=== PATIENT | male | born 1985 | race Caucasian/White ===

== ENCOUNTER 2019-06-12 20:27 | Emergency (ER) | payer SELFPAY ==
[~2019-06-12 20:27] MED LIST: ISOVUE-370 76%-LOCM 1 ML ONE
[2019-06-12 20:55] LABS: #Basophils 0.1 thou/uL (0.0-0.2); #Eosinphils 0.2 thou/uL (0.0-0.7); #Lymphocytes 2.5 thou/uL (1.20-3.40); #Monocytes 0.7 thou/uL (0.11-0.59); #Neutrophils 4.3 thou/uL (1.40-6.50); %Basophils 0.9 % (0.0-1.0); %Eosinophils 3.1 % (0.0-10.0); %Lymphocytes 32.6 % (21.0-51.0); %Monocytes 8.9 % (0.0-10.0); %Neutrophils 54.5 % (42.0-75.0); Mean Corpuscular HGB CONC 34.7 g/dL (32.0-36.0); Mean Corpuscular Hemoglobin 29.9 pg (27.0-31.0); Mean Corpuscular Volume 86.3 fL (78.0-98.0); Mean Platelet Volume 8.2 fL (7.4-10.4); Platelet Count 272 thou/uL (130-400); RBC Distribution Width 11.3 % (11.5-14.5); Red Blood Cell (RBC) Count 5.01 mill/uL (4.70-6.10); White Blood Cell (WBC) Count 7.8 thou/uL (4.8-10.8)
[2019-06-12] MEDS ORDERED: Lorazepam 2 MG/ML VIAL ONE (21:01)
[2019-06-12 21:16] LABS: ALT (SGPT) 17 U/L (8-55); AST (SGOT) 15 U/L (5-34); Albumin 4.7 g/dL (3.5-5.0); Alkaline Phosphatase 50 U/L (40-150); Anion Gap 15 mmol/L (10-20); BUN (Urea Nitrogen) 10 mg/dL (8.9-20.6); Bilirubin, Total 0.5 mg/dL (0.2-1.2); Calc. Creatinine Clearance 0 mL/min (70-130); Calcium 9.5 mg/dL (7.8-10.44); Carbon Dioxide 22 mmol/L (22-29); Chloride 109 mmol/L (98-107); Estimated GFR-MDRD Greater than 90; Globulin 2.9 g/dL (2.4-3.5); Glucose 94 mg/dL (70-105); Potassium 3.6 mmol/L (3.5-5.1); Protein, Total 7.6 g/dL (6.0-8.3); Sodium 142 mmol/L (136-145)
--- NOTE | 2019-06-12 22:00 | CT ---
CT neck soft tissues with contrast: HISTORY: 33-year-old male with dysphagia and dyspnea. FINDINGS: Bilateral palatine tonsils and adenoids are symmetrically enlarged. Mild enlargement of lingual tonsi l. Distention of the hypopharynx with air. No asymmetry of larynx. Trachea patent and clear. Lung apices clear. No pneumothorax. No abscess or lymphadenopathy. Submandibular, parotid, carotid, retrop haryngeal, parapharyngeal, perivertebral, collar worker, and posterior cervical spaces, are normal. No thyromegaly. IMPRESSION: 1. Hyperplasia of Waldeyer's ring. 2. Distention of hypopharynx with air.
[2019-06-12] MEDS ORDERED: Dexamethasone 10 MG/ML VIAL ONE (22:16)
== END 2019-06-13 00:05 | disposition home or self-care (01) ==
LOC: ERS 20:27
DX: R09.89 Other specified symptoms and signs involving the circulatory and respiratory systems (principal)
CPT/HCPCS: 70491; 80053; 85025; 93005; 96361; 96374; 96375; J1100; J1610; J2060; Q9966

== ENCOUNTER 2019-06-13 22:20 | Emergency (ER) | payer SELFPAY ==
[2019-06-13] MEDS ORDERED: diphenhydrAMINE 12.5 MG/5 ML UDCUP ONE (22:33)
[2019-06-13] MEDS ORDERED: Dexamethasone 4 mg/ml Vial ONE (22:33)
[2019-06-13] MEDS ORDERED: Lorazepam 2 MG/ML VIAL ONE (22:44)
== END 2019-06-13 23:36 | disposition home or self-care (01) ==
LOC: ERS 22:20
DX: R13.10 Dysphagia, unspecified (principal)
CPT/HCPCS: 96372; 99284; J1100; J2060; Q0163

== ENCOUNTER 2022-09-29 17:30 | Emergency (ER) | payer SELFPAY ==
[2022-09-29 17:59] LABS: #Lymphocytes 0.6 thou/uL (1.20-3.40); #Monocytes 0.6 thou/uL (0.11-0.59); #Neutrophils 15.5 thou/uL (1.40-6.50); %Basophils 0.2 % (0.0-1.0); %Eosinophils 0.2 % (0.0-10.0); %Lymphocytes 3.8 % (21.0-51.0); %Monocytes 3.7 % (0.0-10.0); %Neutrophils 92.1 % (42.0-75.0); Hemoglobin 17.4 g/dL (14.0-18.0); Mean Corpuscular HGB CONC 33.2 g/dL (32.0-36.0); Mean Corpuscular Hemoglobin 30.6 pg (27.0-31.0); Mean Platelet Volume 7.9 fL (7.4-10.4); Platelet Count 320 10x3/uL (130-400); RBC Distribution Width 11.3 % (11.5-14.5); White Blood Cell (WBC) Count 16.8 10x3/uL (4.8-10.8)
[2022-09-29 18:02] LABS: Bilirubin Negative (Negative); Blood, Urine Negative (Negative); Clarity Clear (Clear); Glucose, Urine (Dipstick) Normal (Negative); Ketone, Urine Trace mg/dL (Negative); Leukocyte Negative Leu/uL (Negative); Nitrite Negative (Negative); Protein, Urine (Dipstick) 20 mg/dL (Neg-Trace); Specific Gravity, Urine 1.036 (1.002-1.036); Urobilinogen Normal mg/dL (Less than 2); pH, Urine 5.5 (5.0-9.0)
[2022-09-29 18:06] LABS: Bacteria/HPF 2+ HPF (None Seen); RBC/HPF 0-3 HPF (0-3); Squamous Epithelial 0-3 HPF (0-3); WBC/HPF 0-3 HPF (0-3)
[2022-09-29 18:19] LABS: ALT (SGPT) 22 U/L (8-55); AST (SGOT) 16 U/L (5-34); Albumin 4.7 g/dL (3.5-5.0); Alkaline Phosphatase 66 U/L (40-110); Anion Gap 15 mmol/L (10-20); BUN (Urea Nitrogen) 9 mg/dL (8.9-20.6); Bilirubin, Total 0.5 mg/dL (0.2-1.2); Calc. Creatinine Clearance 0 mL/min (70-130); Calcium 9.6 mg/dL (7.8-10.44); Carbon Dioxide 22 mmol/L (22-29); Chloride 106 mmol/L (98-107); Estimated GFR 115; Globulin 3.3 g/dL (2.4-3.5); Glucose 124 mg/dL (70-105); Potassium 3.8 mmol/L (3.5-5.1); Sodium 139 mmol/L (136-145)
[2022-09-29] MEDS ORDERED: Ketorolac Tromethamine 30 MG/ML VIAL ONE (19:21)
[2022-09-29] MEDS ORDERED: Ondansetron PF 4 MG/2 ML Vial ONE (19:21)
== END 2022-09-29 21:42 | disposition home or self-care (01) ==
LOC: ERS 17:30
DX: K52.9 Noninfective gastroenteritis and colitis, unspecified (principal)
CPT/HCPCS: 36415; 71045; 74177; 80053; 81003; 83690; 84484; 85025; 93005; 96374; 96375; J1885; J2405

== ENCOUNTER 2025-06-06 17:53 | Emergency (ER) | payer SELFPAY ==
[2025-06-06] MEDS ORDERED: Ketorolac Tromethamine 30 MG (1 mL) VIAL ONE (21:20)
[2025-06-06] MEDS ORDERED: Ondansetron PF 4 MG/2 ML Vial ONE (21:20)
[2025-06-06 21:24] LABS: #Basophils Less than 0.03 10x3/uL (0.0-0.2); #Eosinophils Less than 0.03 10x3/uL (0.0-0.7); #Monocytes 0.50 10x3/uL (0.11-0.59); #Neutrophils 3.39 10x3/uL (1.40-6.50); %Basophils 0.0 % (0.0-1.0); %Eosinophils 0.0 % (0.0-10.0); %Lymphocytes 10.6 % (21.0-51.0); %Monocytes 11.5 % (0.0-10.0); %Neutrophils 77.7 % (42.0-75.0); Hematocrit 45.1 % (42.0-52.0); Hemoglobin 15.2 g/dL (14.0-18.0); Mean Corpuscular Hemoglobin 29.1 pg (27.0-31.0); Mean Corpuscular Volume 86.2 fL (78.0-98.0); Platelet Count 236 10x3/uL (130-400); Red Blood Cell (RBC) Count 5.23 mill/uL (4.70-6.10); White Blood Cell (WBC) Count 4.36 10x3/uL (4.8-10.8)
[2025-06-06 21:37] LABS: ALT (SGPT) 35 U/L (Less than 45); AST (SGOT) 26 U/L (11-34); Albumin 4.4 g/dL (3.1-4.5); Alkaline Phosphatase 57 U/L (40-110); Anion Gap 16 mmol/L (10-20); BUN (Urea Nitrogen) 11 mg/dL (8.9-20.6); Bilirubin, Total 0.2 mg/dL (0.3-1.2); Calc. Creatinine Clearance 0 mL/min (70-130); Calcium 9.0 mg/dL (7.8-10.44); Carbon Dioxide 23 mmol/L (22-29); Chloride 108 mmol/L (98-107); Globulin 3.4 g/dL (2.4-3.5); Glucose 102 mg/dL (70-105); Potassium 4.3 mmol/L (3.5-5.1); Sodium 143 mmol/L (136-145)
== END 2025-06-06 22:11 | disposition home or self-care (01) ==
LOC: ERS 17:53
DX: U07.1 COVID-19 (principal)
CPT/HCPCS: 80053; 85025; 87081; 87426; 87430; 96361; 96374; 96375; J1885; J2405